=== PATIENT | male | born 1960 | race Caucasian/White ===

== ENCOUNTER 2017-08-20 20:06 | Emergency (ER) | payer SELFPAY ==
[~2017-08-20] VITALS: Ht 167.6 cm; Wt 71.0 kg
[2017-08-21] MEDS ORDERED: LIDOCAINE HCL 1% 20ML VIAL (Pyxis) INJ MC ONE (01:00)
[2017-08-21] MEDS ORDERED: TETANUS, DIPHTHERIA, PERTUSSIS VAC/PF 0.5ML (>7YR OLD) IM ONE (01:00)
[2017-08-21] MEDS ORDERED: MORPHINE SULFATE 10 MG/ML CPJ IM ONE (01:00)
[2017-08-21] MEDS ORDERED: ONDANSETRON 4MG ODT PO ONE (01:00)
[2017-08-21 02:00] VITALS: BP 123/66
== END 2017-08-21 03:12 | disposition home or self-care (01) ==
LOC: ER 22:14
DX: S61.111A Laceration without foreign body of right thumb with damage to nail, initial encounter (principal); F17.210 Nicotine dependence, cigarettes, uncomplicated; F12.10 Cannabis abuse, uncomplicated; W22.8XXA Striking against or struck by other objects, initial encounter; Y93.89 Activity, other specified; Y92.810 Car as the place of occurrence of the external cause
CPT/HCPCS: 12001; 90471; 90715; 96372; 99284; J2270; J3490; Q0162; X7700; Z7610